=== PATIENT | male | born 1975 | race Caucasian/White ===

== ENCOUNTER 2018-09-18 10:25 | Emergency (ER) | payer OTHER ==
[2018-09-18 11:04] VITALS: TEMP 98.5; BMI 34.2
[2018-09-18] MEDS ORDERED: SODIUM CHLORIDE 0.9% 1000 ML INFUS.BAG IV ONE (11:17)
[2018-09-18] MEDS ORDERED: ONDANSETRON 4 MG/2 ML VIAL IVPUSH ONE (11:19)
[2018-09-18 11:42] LABS: BASO % 0.8 % (0-2.0); EOS % 2.9 % (0-4.5); HEMATOCRIT 45.4 % (35.4-49); HEMOGLOBIN 15.3 GM/dL (11.7-16.9); LYMPH % 24.9 % (8-40); MCH 29.8 pg (25.7-33.7); MCHC 33.6 g/dl (32.0-35.9); MEAN CELL VOLUME 88.6 fl (80-96); MEAN PLT VOLUME 9.5 fl (7.5-11.1); MONO % 5.4 % (3.8-10.2); PLATELET COUNT 212 K/MM3 (134-434); RBC 5.13 M/mm3 (4.00-5.60); RDW 13.3 % (11.9-15.9); WHITE BLOOD COUNT 7.8 K/mm3 (4.0-10.0)
[2018-09-18] MEDS ORDERED: morphine CARPU-JECT 4 MG/1 ML DISP.SYRIN IVPUSH ONE (11:52)
[2018-09-18] MEDS ORDERED: morphine SULFATE 4 MG/ML VIAL ONE (11:55)
--- NOTE | 2018-09-18 11:55 | PDOC ---
History of Present Illness <Tigist Cho - Last Filed: 09/18/18 13:37> - General History Source: Patient Exam Limitations: No Limitations - History of Present Illness Initial Comments: 09/18/18 11:53 43 yo male with h/o asthma here with c/o right sided abd/ flank pain. started 2 days ago. did have nausea. pain worse with coughing, movement and deep breathing. no f/c no hematuria or dysuria. <Fatou Chang - Last Filed: 09/18/18 14:20> - General Chief Complaint: Pain Stated Complaint: SEVERE SIDE PAIN Past History <Tigist Cho - Last Filed: 09/18/18 13:37> - Past Medical History Asthma: Yes Cancer: No CVA: No COPD: No CHF: No DVT: No Diabetes: No GI Disorders: Yes (GERD, hx diverticulitis) Disorders: Yes (urine problems ? sees urologist) HTN: No Hypercholesterolemia: No Liver Disease: No Seizures: No Thyroid Disease: No - Surgical History Abdominal Surgery: Yes (UMBILICAL HERNIA: 01/16/13) - Immunization History Immunization Up to Date: Yes - Suicide/Smoking/Psychosocial Hx Smoking Status: Yes Smoking History: Current every day smoker Number of Cigarettes Smoked Daily: 20 Information on smoking cessation initiated: No Hx Alcohol Use: Yes (occassional.) Drug/Substance Use Hx: Yes (marijuana) Substance Use Type: Alcohol, Marijuana Hx Substance Use Treatment: No <KiyarosettaFatou - Last Filed: 09/18/18 14:20> - Past Medical History Allergies/Adverse Reactions: Allergies Allergy/AdvReac Type Severity Reaction Status Date / Time No Known Allergies Allergy Verified 10/11/14 01:18 Home Medications: Ambulatory Orders Montelukast Na [Singulair] 10 mg PO HS 02/06/13 Salmeterol/Fluticasone [Advair 250Mcg/50Mcg] 1 inh IH BID 02/06/13 Omeprazole [Prilosec (RX)] 20 mg PO DAILY 10/11/14 Tiotropium [place] [Spiriva -] 1 inh PO DAILY 10/11/14 Diclofenac Sodium 75 mg PO DAILY 06/29/18 Diazepam [Valium] 5 mg PO Q8H PRN #10 tablet MDD 3 09/18/18 Gabapentin 600 mg PO HS 09/18/18 Ibuprofen [Motrin -] 600 mg PO TID #90 tablet 09/18/18 Ranitidine HCl 50 mg PO DAILY 09/18/18 *Physical Exam - Vital Signs Last Vital Signs Temp Pulse Resp BP Pulse Ox 98.5 F 94 H 16 127/86 100 09/18/18 10:51 09/18/18 10:51 09/18/18 10:51 09/18/18 10:51 09/18/18 10:51 <Tigist Cho - Last Filed: 09/18/18 13:37> - Vital Signs Last Vital Signs Temp Pulse Resp BP Pulse Ox 98.5 F 94 H 16 127/86 100 09/18/18 10:51 09/18/18 10:51 09/18/18 10:51 09/18/18 10:51 09/18/18 10:51 <KiyarosettaFatou - Last Filed: 09/18/18 14:20> ED Treatment Course - LABORATORY CBC & Chemistry Diagram: 09/18/18 11:37 09/18/18 11:37 - ADDITIONAL ORDERS Additional order review: Laboratory Results 09/18/18 11:37 Sodium 143 Potassium 3.9 Chloride 107 Carbon Dioxide 24 Anion Gap 12 BUN 16 Creatinine 0.8 Creat Clearance w eGFR > 60 Random Glucose 81 Calcium 9.2 Total Bilirubin 0.7 AST 25 ALT 50 Alkaline Phosphatase 63 Total Protein 7.6 Albumin 4.1 Lipase 171 09/18/18 11:37 RBC 5.13 MCV 88.6 MCHC 33.6 RDW 13.3 MPV 9.5 Neutrophils % 66.0 Lymphocytes % 24.9 D Monocytes % 5.4 Eosinophils % 2.9 Basophils % 0.8 - RADIOLOGY Radiograph Interpretation: 09/18/18 13:00 Chest X-ray as reviewed by Dr. Hood reports no acute pathology. 09/18/18 13:[address] as reviewed by Dr. Patton reports mild atelectactic changes in lingular segment of the left upper lobe. Fatty liver. No evidence of hydroureteronephrosis, renal or ureteral stone bilaterally. No urinary bladder stones identified. Diverticulosis coli mainly in the sigmoid colon without evidence of acute diverticulitis. - Medications Given in the ED: ED Medications Discontinued Medications Generic Name Dose Route Start Last Admin Trade Name Freq PRN Reason Stop Dose Admin Morphine Sulfate 4 mg 09/18/18 11:52 09/18/18 11:56 Morphine Injection - IVPUSH 09/18/18 11:53 4 mg ONCE ONE Administration Ondansetron HCl 4 mg 09/18/18 11:19 09/18/18 11:36 Zofran Injection IVPUSH 09/18/18 11:20 4 mg ONCE ONE Administration Sodium Chloride 1,000 ml 09/18/18 11:17 09/18/18 11:36 Normal Saline - IV 09/18/18 11:18 1,000 ml ONCE ONE Administration <Tigist Cho - Last Filed: 09/18/18 13:37> - LABORATORY CBC & Chemistry Diagram: 09/18/18 11:37 09/18/18 11:37 - ADDITIONAL ORDERS Additional order review: 09/18/18 11:37 RBC 5.13 MCV 88.6 MCHC 33.6 RDW 13.3 MPV 9.5 Neutrophils % 66.0 Lymphocytes % 24.9 D Monocytes % 5.4 Eosinophils % 2.9 Basophils % 0.8 - Medications Given in the ED: ED Medications Discontinued Medications Generic Name Dose Route Start Last Admin Trade Name Freq PRN Reason Stop Dose Admin Ondansetron HCl 4 mg 09/18/18 11:19 09/18/18 11:36 Zofran Injection IVPUSH 09/18/18 11:20 4 mg ONCE ONE Administration Sodium Chloride 1,000 ml 09/18/18 11:17 09/18/18 11:36 Normal Saline - IV 09/18/18 11:18 1,000 ml ONCE ONE Administration <Fatou Chang - Last Filed: 09/18/18 14:20> Medical Decision Making - Medical Decision Making 09/18/18 14:10 differential diagnosis msk strain pain, renal colic, cholelithiasis, cholecystitis, biliary obstruction, rib injury pna. no risk factors for pe ( no ho pe or dvt, no recent travel, no immoblilization.) reproducible pain on exam. focused ED ultrasound rUQ indication: ruq pain r/o toya gallbladder scanned in two planes. wall no edema. no thickening, no pericholecystic fluid, no sonographic fernandez's , cbd not visualized difficult due to habitus. no stones. impressions: normal gallbladder bilateral renal ultrasound indication: flank pain, right bilateral kidneys scanned in two planes. no noted hydronephrosis bladder nondistended. impressions: normal renal ultrasound plan ct a/p r/o discrete nonobstructing stone as cause for pain. due to reproducible nature. suspect msk ct a/p negative. will treat with motrin and valiu. dc dariela. <Fatou Chnag - Last Filed: 09/18/18 14:20> *DC/Admit/Observation/Transfer - Attestations Scribe Attestion: 09/18/18 13:00 Documentation prepared by Tigist Cho, acting as phlebotomist medical lab assistant for Fatou Chang MD. <Tigist Cho - Last Filed: 09/18/18 13:37> - Discharge Dispostion Decision to Admit order: No <Fatou Chang - Last Filed: 09/18/18 14:20> Diagnosis at time of Disposition: Back strain - Discharge Dispostion Disposition: HOME Condition at time of disposition: Improved - Prescriptions Prescriptions: Diazepam [Valium] 5 mg PO Q8H PRN #10 tablet MDD 3 PRN Reason: Pain Ibuprofen [Motrin -] 600 mg PO TID #90 tablet - Referrals Referrals: Janice Isidro MD [Primary Care Provider] - - Patient Instructions Printed Discharge Instructions: Back Pain (Alternative Therapy) Additional Instructions: you can take ibuprofen 600 mg every 8 hrs as needed for pain. you can use valium 5 mg every 8 hrs as needed for muscle spasm. do not mix with alcohol and do not drive after taking medication. your CT abdomen was negative for any acute pathology to explain your pain. your chest xray is negative for any pneumonia. you likley strained your back during coughing or lifting. follow up with your primary doctor. call to schedule. return for worsening symptoms, fever. weakness or any concerns. - Post Discharge Activity
[2018-09-18 12:17] LABS: ALBUMIN 4.1 g/dl (3.4-5.0); ALK PHOS 63 U/L (45-117); ANION GAP 12 MMOL/L (8-16); BILIRUBIN,TOTAL 0.7 mg/dL (0.2-1); BLOOD UREA NITROGEN 16 mg/dL (7-18); CALCIUM 9.2 mg/dL (8.5-10.1); CHLORIDE 107 mmol/L (98-107); CO2 24 mmol/L (21-32); CREATININE 0.8 mg/dL (0.55-1.3); GLUCOSE,RANDOM 81 mg/dL (74-106); LIPASE 171 U/L (73-393); POTASSIUM 3.9 mmol/L (3.5-5.1); SGOT/AST 25 U/L (15-37); SGPT/ALT 50 U/L (13-61); SODIUM 143 mmol/L (136-145); TOT PROT 7.6 g/dl (6.4-8.2)
[2018-09-18] MEDS ORDERED: diazePAM 5 MG TABLET PO ONE (13:47)
[2018-09-18] MEDS ORDERED: KETOROLAC TROMETHAMINE 30 MG/1 ML VIAL IVPUSH ONE (13:47)
[2018-09-18] MEDS ORDERED: diazePAM 5 MG TABLET ONE (13:49)
[2018-09-18] MEDS ORDERED: KETOROLAC TROMETHAMINE 30 MG/1 ML VIAL ONE (13:50)
[2018-09-18 14:49] LABS: URINE APPEARANCE CLEAR; URINE BILIRUBIN NEGATIVE (<2.0 mg/dL); URINE COLOR LTYELLOW; URINE GLUCOSE (UA) NEGATIVE (NEGATIVE); URINE KETONE NEGATIVE (NEGATIVE); URINE LEUK ESTERASE NEGATIVE (NEGATIVE); URINE NITRITE NEGATIVE (NEGATIVE); URINE PROTEIN NEGATIVE (NEGATIVE); URINE UROBILINOGEN NEGATIVE mg/dL (0.2-1.0)
[2018-09-18 14:54] LABS: EPI CELLS RARE /HPF (FEW)
[2018-09-18 15:26] VITALS: BP 118/65; PULSE 65
== END 2018-09-18 15:36 | disposition home or self-care (01) ==
LOC: JER 10:25
PROC: 3E033GC Introduction of Other Therapeutic Substance into Peripheral Vein, Percutaneous Approach (ICD-10-PCS; principal; 2018-09-18)
PROC: 3E033NZ Introduction of Analgesics, Hypnotics, Sedatives into Peripheral Vein, Percutaneous Approach (ICD-10-PCS; 2018-09-18)
PROC: 3E0333Z Introduction of Anti-inflammatory into Peripheral Vein, Percutaneous Approach (ICD-10-PCS; 2018-09-18)
DX: S39.012A Strain of muscle, fascia and tendon of lower back, initial encounter (principal); J45.909 Unspecified asthma, uncomplicated; K21.9 Gastro-esophageal reflux disease without esophagitis; F17.210 Nicotine dependence, cigarettes, uncomplicated; X58.XXXA Exposure to other specified factors, initial encounter; Y93.89 Activity, other specified; Y92.89 Other specified places as the place of occurrence of the external cause; Y99.8 Other external cause status
CPT/HCPCS: 36415; 71046-TC-FY; 74176; 80053; 81003; 81015; 83690; 85025; 96374; 96375; 99283-25; J7030

== ENCOUNTER 2019-03-13 11:01 | Emergency (ER) | payer OTHER ==
[2019-03-13 11:08] VITALS: BP 143/91; PULSE 98; TEMP 99.1; BMI 37.7
[2019-03-13] MEDS ORDERED: DEXAMETHASONE SOD PHOSPHATE 10 MG/1 ML VIAL ONE (11:32)
[2019-03-13] MEDS ORDERED: IBUPROFEN 400 MG TABLET (FP) PO ONE ×2 (12:20→12:48)
[2019-03-13] MEDS: ALBUTEROL SO4 2.5/IPRATROPIUM 0.5 INH SOL 3 ML VIAL.NEB. NEB SCH ×2 (12:30→15:40)
--- NOTE | 2019-03-13 12:39 | PDOC ---
Documentation entered by Lucy Chacon SCRIBE, acting as scribe for Maxwell Horowitz MD. Maxwell Horowitz MD: This documentation has been prepared by the Oswaldo oates Amanda, SCRIBE, under my direction and personally reviewed by me in its entirety. I confirm that the documentation accurately reflects all work, treatment, procedures, and medical decision making performed by me. History of Present Illness - General Chief Complaint: Asthma Stated Complaint: Asthma Time Seen by Provider: 03/13/19 11:47 History Source: Patient Exam Limitations: No Limitations - History of Present Illness Initial Comments: 03/13/19 12:15 The patient is a 45 year old female, with a significant past medical history of asthma (s.p intubation 2002) and GERD who presents to the emergency department via ems with complaint of shortness of breath since 2AM yesterday with associated dry cough, chills, sweats, and one hour of left upper quadrant pain today. He states he used his ventolin x15 since yesterday without any relief of his symptoms. He reports use of his nebulizer at 7AM without relief. He states he also used his advair this morning without relief. He states he has run out of his Spiriva. Of note, patient recently moved in with his parents and notes mold and dust in the house, which could also be triggers. As per EMS, the patient received 1 nebulizer treatment and 10mg of decadron in route to the ED. He states his has been sick for about 5 days with what he believes to be the flu. Secondarily, he states he was scheduled for an endoscopy today, however, his symptoms prompted his ED visit. The patient denies chest pain, headache and dizziness. The patient denies facial pain or sinus congestion. The patient denies fever, chills, nausea, vomit , diarrhea and constipation. The patient denies dysuria, frequency, urgency and hematuria. Allergies: NKDA Past surgical history: hernia repair (2004) PCP - [facility] [employer]: Dr. Vasquez Past History - Past Medical History Allergies/Adverse Reactions: Allergies Allergy/AdvReac Type Severity Reaction Status Date / Time No Known Allergies Allergy Verified 10/11/14 01:18 Home Medications: Ambulatory Orders Montelukast Na [Singulair -] 10 mg PO HS 02/06/13 Salmeterol/Fluticasone [Advair 250Mcg/50Mcg] 1 inh IH BID 02/06/13 Omeprazole [Prilosec (RX)] 20 mg PO DAILY 10/11/14 Tiotropium [place] [Spiriva] 1 inh PO DAILY 10/11/14 Diclofenac Sodium 75 mg PO DAILY 06/29/18 Diazepam [Valium] 5 mg PO Q8H PRN #10 tablet MDD 3 09/18/18 Gabapentin 600 mg PO HS 09/18/18 Ibuprofen [Motrin -] 600 mg PO TID #90 tablet 09/18/18 Ranitidine HCl 50 mg PO DAILY 09/18/18 Methylprednisolone [Medrol Dose Brendon] 4 mg PO ASDIR #21 tablet 03/13/19 Asthma: Yes Cancer: No CVA: No COPD: No CHF: No DVT: No Diabetes: No GI Disorders: Yes (GERD, hx diverticulitis) Disorders: Yes (urine problems ? sees urologist) HTN: No Hypercholesterolemia: No Liver Disease: No Seizures: No Thyroid Disease: No - Surgical History Abdominal Surgery: Yes (UMBILICAL HERNIA: 01/16/13) - Immunization History Immunization Up to Date: Yes - Suicide/Smoking/Psychosocial Hx Smoking Status: Yes Smoking History: Current every day smoker Have you smoked in the past 12 months: Yes Number of Cigarettes Smoked Daily: 20 Information on smoking cessation initiated: No Hx Alcohol Use: No Drug/Substance Use Hx: No Substance Use Type: Alcohol, Marijuana Hx Substance Use Treatment: No Review of Systems - Review of Systems Constitutional: Yes: Chills, Fever, Night Sweats Respiratory: Yes: Cough, Shortness of Breath, Wheezing Cardiac (ROS): No: Syncope ABD/GI: No: Vomiting Musculoskeletal: Yes: Muscle Pain All Other Systems: Reviewed and Negative *Physical Exam - Vital Signs Last Vital Signs Temp Pulse Resp BP Pulse Ox 99.1 F 98 H 20 143/91 98 03/13/19 11:05 03/13/19 11:05 03/13/19 11:05 03/13/19 11:05 03/13/19 11:05 - Physical Exam Comments: 03/13/19 12:15 GENERAL: The patient is awake, alert, and fully oriented, in no acute distress. HEAD: Normal with no signs of trauma. EYES: Pupils equal, round and reactive to light, extraocular movements intact, sclera anicteric, conjunctiva clear with no pallor. ENT: Ears normal, nares patent, oropharynx clear without exudates. Moist mucous membranes. NECK: Normal range of motion, supple without lymphadenopathy, JVD, or masses. LUNGS: (+) bibasilar distant breath sounds with expiratory wheezing, otherwise good air movement. Breath sounds equal, clear to auscultation bilaterally. No wheeze/crackles. CHEST: (+) reproducible tenderness to left lower intercostal lower ribs. HEART: Regular rate and rhythm, normal S1 and S2 without murmur or rub. ABDOMEN: Soft/nontender/nondistended. BS wnl. No guarding or rebound. No palpable masses. No hepatosplenomegaly. EXTREMITIES: Normal range of motion, no edema. No clubbing or cyanosis. No cords, erythema, or tenderness. NEUROLOGICAL: Cranial nerves II through XII grossly intact. Normal speech, normal gait. PSYCH: Normal mood, normal affect. SKIN: Warm, Dry, normal turgor, no rashes or lesions noted. Heart Score/ECG Review #1 General ECG Interpretation: Sinus Rhythm, Normal Rate (85), Normal Intervals ( qtc 414), No acute ischemic changes ED Treatment Course - RADIOLOGY Radiology Studies Ordered: Category Date Time Status CHEST PA & LAT [RAD] Stat Radiology 03/13/19 12:09 Ordered Medical Decision Making - Medical Decision Making 03/13/19 12:34 44-year-old male with history of moderate persistent asthma intubated once in 2002 maintained on Advair and Spiriva daily and usual state of good health until yesterday, when began developing generalized viral symptoms of fever/ chills/night sweats/myalgia/cough, sick contact in with same over the last 2 days so presumed similar illness. Presents now secondary to asthma exacerbation in the setting, requiring almost hourly Ventolin pump use at home. 99.1, O2 sat 98% on room air, slightly tachypneic on arrival Received DuoNeb nebs and Decadron with EMS Distant breath sounds at both bases with expiratory wheezing, otherwise good air entry Reproducible intercostal muscle discomfort to palpation in the left lower ribs, no rash or bruising 44-year-old male with asthma exacerbation in the setting of viral illness, possible influenza. Rule out pneumonia. Continue nebulizers Already received steroids Chest x-ray, EKG Ibuprofen for rib muscle strain Reassess 03/13/19 15:23 feels much better after nebs, o2 sat 98% room air, ambulating comfortably, still with some rib discomfort treated with tramadol. EKG normal, cxr normal will d/c on medrol dose pack, has refills of his advair/spiriva, understands return criteria smoking cessation counseling performed *DC/Admit/Observation/Transfer Diagnosis at time of Disposition: Acute asthma exacerbation Qualifiers: Asthma severity: mild Asthma persistence: intermittent Qualified Code(s): J45.21 - Mild intermittent asthma with (acute) exacerbation - Discharge Dispostion Disposition: HOME Condition at time of disposition: Improved - Prescriptions Prescriptions: Methylprednisolone [Medrol Dose Brendon] 4 mg PO ASDIR #21 tablet - Referrals Referrals: Janice Isidro MD [Primary Care Provider] - - Patient Instructions Printed Discharge Instructions: DI for Asthma -- Adult Additional Instructions: Activity as tolerated. Stay hydrated. A flu test, a chest x-ray, and an EKG showed no acute abnormalities. Tylenol 1000 mg every 8 hours and/or ibuprofen 600 mg every 8 hours as needed for pain. Continue Advair and Spiriva as previously prescribed, continue Ventolin as previously prescribed as needed, take Medrol Dosepak as prescribed as steroid taper. Continue your medications as previously prescribed by your physician. You should follow up with your primary doctor as soon as possible regarding today's emergency department visit. Return to the emergency department for any new or concerning symptoms, particularly persistent or worsening shortness of breath, persistent or worsening pain, high fevers or chills, chest pain. - Post Discharge Activity
[2019-03-13] MEDS ORDERED: ALBUTEROL SO4 2.5/IPRATROPIUM 0.5 INH SOL 3 ML VIAL.NEB. NEB ONE ×2 (12:48→14:45)
--- NOTE | 2019-03-13 14:59 | EKG ---
Test Reason : Blood Pressure : / mmHG Vent. Rate : 085 BPM Atrial Rate : 085 BPM P-R Int : 168 ms QRS Dur : 088 ms QT Int : 348 ms P-R-T Axes : 048 057 054 degrees QTc Int : 414 ms NORMAL SINUS RHYTHM NORMAL ECG WHEN COMPARED WITH ECG OF 21-DEC-2000 22:54, QT HAS SHORTENED Confirmed by MD Alfa, Collin ([id number]) on 03/13/2019 2:59:39 PM Referred By: Confirmed By:Collin Grimm MD
[2019-03-13] MEDS ORDERED: traMADol HCL 50 MG TABLET PO ONE (15:29)
[2019-03-13] MEDS ORDERED: traMADol HCL 50 MG TABLET ONE (15:32)
== END 2019-03-13 15:58 | disposition home or self-care (01) ==
LOC: JER 11:01
PROC: 3E0F7GC Introduction of Other Therapeutic Substance into Respiratory Tract, Via Natural or Artificial Opening (ICD-10-PCS; principal; 2019-03-13)
DX: J45.21 Mild intermittent asthma with (acute) exacerbation (principal); S29.011A Strain of muscle and tendon of front wall of thorax, initial encounter; X58.XXXA Exposure to other specified factors, initial encounter; Y93.89 Activity, other specified; Y92.89 Other specified places as the place of occurrence of the external cause; Y99.8 Other external cause status
CPT/HCPCS: 71046-TC-FY; 87804; 93005; 93010; 94640; 99282-25

== ENCOUNTER 2021-05-14 11:50 | Emergency (ER) | payer OTHER ==
[2021-05-14 12:27] VITALS: BP 117/80; PULSE 85; TEMP 98.1; BMI 40.8
[2021-05-14] MEDS ORDERED: LIDOCAINE 5% TOPICAL PATCH TP ONE (12:55)
[2021-05-14] MEDS ORDERED: KETOROLAC TROMETHAMINE 30 MG/1 ML VIAL IVPUSH ONE (12:55)
[2021-05-14] MEDS ORDERED: KETOROLAC TROMETHAMINE 30 MG/1 ML VIAL IM ONE ×2 (12:58→14:39)
[2021-05-14] MEDS ORDERED: KETOROLAC TROMETHAMINE 30 MG/1 ML VIAL ONE ×2 (13:00→14:46)
[2021-05-14] MEDS ORDERED: LIDOCAINE 5% TOPICAL PATCH ONE (13:21)
[2021-05-14] MEDS ORDERED: CYCLOBENZAPRINE HCL 5 MG TABLET PO ONE (14:39)
[2021-05-14] MEDS ORDERED: CYCLOBENZAPRINE HCL 10 MG TABLET (FP) ONE (14:46)
[2021-05-14] MEDS ORDERED: LIDOCAINE PATCH REMOVAL MC SCH (22:00)
[2021-05-15] MEDS ORDERED: CYCLOBENZAPRINE HCL 5 MG TABLET PO ONE (14:39)
== END 2021-05-14 16:03 ==
LOC: FER 11:50
PROC: 3E0233Z Introduction of Anti-inflammatory into Muscle, Percutaneous Approach (ICD-10-PCS; principal; 2021-05-14)
PROC: 3E0333Z Introduction of Anti-inflammatory into Peripheral Vein, Percutaneous Approach (ICD-10-PCS; 2021-05-14)
DX: M54.41 Lumbago with sciatica, right side (principal)
CPT/HCPCS: 72131-TC; 99285-25

== ENCOUNTER 2023-05-25 12:52 | Emergency (ER) | payer OTHER ==
[2023-05-25 13:02] VITALS: BP 139/89; PULSE 80; RESP 20; TEMP 98.3; BMI 29.0
[2023-05-25] MEDS ORDERED: SODIUM CHLORIDE 0.9% 500 ML INFUS.BAG IV ONE (13:24)
[2023-05-25] MEDS ORDERED: KETOROLAC TROMETHAMINE 15 MG/ML VIAL IVPUSH ONE (13:24)
[2023-05-25] MEDS ORDERED: KETOROLAC TROMETHAMINE 15 MG/ML VIAL ONE (13:48)
[2023-05-25 15:15] LABS: BASO % 0.7 % (0-2.0); EOS % 2.5 % (0-4.5); HEMATOCRIT 43.7 % (35.4-49); LYMPH % 22.5 % (8-40); MCH 29.9 pg (25.7-33.7); MCHC 34.4 g/dl (32.0-35.9); MEAN CELL VOLUME 86.9 fl (80-96); MEAN PLT VOLUME 9.9 fl (7.5-11.1); NEUT % 67.3 % (42.8-82.8); PLATELET COUNT 179 10^3/uL (134-434); RBC 5.03 M/mm3 (4.00-5.60); WHITE BLOOD COUNT 7.2 K/mm3 (4.0-10.0)
[2023-05-25 15:18] LABS: EPI CELLS 1 /uL (0-25.1); HYALINE CASTS 0 /uL (0-3.1); PH,URINE 5.5 (5.0-8.0); URINE APPEARANCE CLEAR; URINE BACTERIA 1 /uL (0-1359); URINE BILIRUBIN NEGATIVE (NEGATIVE); URINE COLOR YELLOW; URINE GLUCOSE (UA) NEGATIVE (NEGATIVE); URINE KETONE NEGATIVE (NEGATIVE); URINE LEUK ESTERASE NEGATIVE (NEGATIVE); URINE NITRITE NEGATIVE (NEGATIVE); URINE PROTEIN NEGATIVE (NEGATIVE); URINE RBC 5 /uL (0-23.9); URINE WBC 1 /uL (0-25.8)
[2023-05-25] MEDS ORDERED: ACETAMINOPHEN 500 MG TABLET (FP) PO ONE (15:19)
[2023-05-25 15:31] LABS: CALCIUM 9.3 mg/dL (8.5-10.1)
[2023-05-25 15:32] LABS: ALBUMIN 3.9 g/dl (3.4-5.0); BLOOD UREA NITROGEN 21.7 mg/dL (7-18)
[2023-05-25 15:35] LABS: CREATININE 0.9 mg/dL (0.55-1.3)
[2023-05-25 15:37] LABS: BILIRUBIN,TOTAL 0.5 mg/dL (0.2-1)
[2023-05-25] MEDS ORDERED: ACETAMINOPHEN 325 MG TABLET (FP) ONE (15:38)
== END 2023-05-25 17:16 | disposition home or self-care (01) ==
LOC: JER 12:52
PROC: 3E0333Z Introduction of Anti-inflammatory into Peripheral Vein, Percutaneous Approach (ICD-10-PCS; principal; 2023-05-25)
DX: M79.652 Pain in left thigh (principal); R10.9 Unspecified abdominal pain
CPT/HCPCS: 36415; 74176-TC; 76870-TC; 80053; 81003; 85025; 87086; 99285-25

== ENCOUNTER 2023-08-26 04:18 | Day surgery (SDC) | payer OTHER ==
[2023-08-24 14:43] VITALS: BMI 36.3
[~2023-08-26 04:18] MED LIST: BUPIVACAINE HCL/PF 0.75% 10 ML VIAL NR ONE; LIDOCAINE HCL 1% PRESERVATIVE FREE - 30ML VIAL IJ ONE
[2023-08-26] MEDS ORDERED: BUPIVACAINE HCL/PF 0.75% 10 ML VIAL ONE (07:26)
[2023-08-26] MEDS ORDERED: LIDOCAINE HCL/PF 1% SDV 5ML VIAL ONE (07:26)
[2023-08-26] MEDS ORDERED: LIDOCAINE HCL 1% PRESERVATIVE FREE - 30ML VIAL IJ ONE (09:23)
[2023-08-26] MEDS ORDERED: BUPIVACAINE HCL/PF 0.75% 10 ML VIAL NR ONE (09:24)
[2023-08-26] MEDS ORDERED: ACETAMINOPHEN 500 MG TABLET (FP) ONE (09:45)
[2023-08-26 09:57] VITALS: BP 125/88; PULSE 67; RESP 18; TEMP 98.4
[2023-08-26] MEDS ORDERED: ACETAMINOPHEN 500 MG TABLET (FP) PO PRN (10:10)
== END 2023-08-26 10:00 | disposition home or self-care (01) ==
LOC: JASU-SURG 04:18
PROVIDERS: ATTEND Pain Medicine Pain Medicine
PROC: 3E0T3BZ Introduction of Anesthetic Agent into Peripheral Nerves and Plexi, Percutaneous Approach (ICD-10-PCS; principal; 2023-08-26 08:45)
DX: M47.816 Spondylosis without myelopathy or radiculopathy, lumbar region (principal)
CPT/HCPCS: 76000-TC-FY

== ENCOUNTER 2023-09-23 04:52 | Day surgery (SDC) | payer OTHER ==
[2023-09-22 09:36] VITALS: BMI 36.3
[2023-09-23] MEDS ORDERED: BUPIVACAINE HCL/PF 0.75% 10 ML VIAL ONE (07:31)
[2023-09-23 09:21] VITALS: RESP 20
[2023-09-23] MEDS ORDERED: ACETAMINOPHEN 500 MG TABLET (FP) PO PRN (09:42)
[2023-09-23] MEDS ORDERED: LIDOCAINE HCL 1% PRESERVATIVE FREE - 30ML VIAL IJ ONE (10:24)
[2023-09-23] MEDS ORDERED: BUPIVACAINE 0.75% IN DEXTROSE/PF 2ML AMPULE NR ONE (10:27)
[2023-09-23 11:26] VITALS: BP 120/80; PULSE 68; TEMP 98
== END 2023-09-23 11:00 | disposition home or self-care (01) ==
LOC: JASU-SURG 04:52
PROVIDERS: ATTEND Pain Medicine Pain Medicine
PROC: 3E0T33Z Introduction of Anti-inflammatory into Peripheral Nerves and Plexi, Percutaneous Approach (ICD-10-PCS; 2023-09-23)
PROC: BR16YZZ Fluoroscopy of Lumbar Facet Joint(s) using Other Contrast (ICD-10-PCS; 2023-09-23)
PROC: 3E0T3BZ Introduction of Anesthetic Agent into Peripheral Nerves and Plexi, Percutaneous Approach (ICD-10-PCS; principal; 2023-09-23 10:15)
DX: M47.816 Spondylosis without myelopathy or radiculopathy, lumbar region (principal)
CPT/HCPCS: 76000-TC-FY

== ENCOUNTER 2023-11-04 04:09 | Day surgery (SDC) | payer OTHER ==
[2023-11-02 13:13] VITALS: BMI 36.3
[~2023-11-04 04:09] MED LIST changes: -BUPIVACAINE HCL/PF 0.75% 10 ML VIAL NR ONE; +BUPIVACAINE HCL/PF 0.75% 10 ML VIAL PNB ONE; +DEXAMETHASONE SOD PHOSPHATE 10 MG/1 ML VIAL IM ONE; +LIDOCAINE HCL 2% (50ML VIAL) INF ONE
[2023-11-04] MEDS ORDERED: BUPIVACAINE HCL/PF 0.75% 10 ML VIAL ONE (07:18)
[2023-11-04] MEDS ORDERED: DEXAMETHASONE SOD PHOSPHATE 10 MG/1 ML VIAL ONE (07:18)
[2023-11-04] MEDS ORDERED: LIDOCAINE HCL/PF 2% SDV 5ML VIAL ONE (07:18)
[2023-11-04] MEDS ORDERED: LIDOCAINE HCL/PF 1% SDV 5ML VIAL ONE (07:18)
[2023-11-04 09:58] VITALS: RESP 18
[2023-11-04] MEDS ORDERED: DEXAMETHASONE SOD PHOSPHATE 10 MG/1 ML VIAL IM ONE (12:21)
[2023-11-04] MEDS ORDERED: BUPIVACAINE HCL/PF 0.75% 10 ML VIAL PNB ONE ×2 (12:21)
[2023-11-04] MEDS ORDERED: LIDOCAINE HCL 2% (50ML VIAL) INF ONE ×2 (12:21)
[2023-11-04] MEDS ORDERED: LIDOCAINE HCL 1% PRESERVATIVE FREE - 30ML VIAL IJ ONE ×2 (12:21)
[2023-11-04] MEDS ORDERED: ACETAMINOPHEN 500 MG TABLET (FP) ONE (12:50)
[2023-11-04] MEDS ORDERED: ACETAMINOPHEN 500 MG TABLET (FP) PO PRN (14:09)
[2023-11-04 15:27] VITALS: BP 121/60; PULSE 65; TEMP 97.8
== END 2023-11-04 13:05 | disposition home or self-care (01) ==
LOC: JASU-SURG 04:09
PROVIDERS: ATTEND Pain Medicine Pain Medicine
PROC: 015B3ZZ Destruction of Lumbar Nerve, Percutaneous Approach (ICD-10-PCS; principal; 2023-11-04 11:15)
DX: M47.816 Spondylosis without myelopathy or radiculopathy, lumbar region (principal)
CPT/HCPCS: 76000-TC-FY; J1100

== ENCOUNTER 2023-12-30 03:52 | Day surgery (SDC) | payer OTHER ==
[2023-12-29 10:21] VITALS: BMI 36.3
[2023-12-30] MEDS ORDERED: LIDOCAINE HCL/PF 2% SDV 5ML VIAL ONE (07:24)
[2023-12-30] MEDS ORDERED: BUPIVACAINE HCL/PF 0.75% 10 ML VIAL ONE (07:25)
[2023-12-30] MEDS ORDERED: LIDOCAINE HCL/PF 1% SDV 5ML VIAL ONE (07:25)
[2023-12-30] MEDS ORDERED: ACETAMINOPHEN 500 MG TABLET (FP) PO PRN ×2 (08:29→13:44)
[2023-12-30 14:14] VITALS: TEMP 97.7
[2023-12-30] MEDS: LIDOCAINE HCL 1% PRESERVATIVE FREE - 30ML VIAL IJ ONE ×2 (14:45)
[2023-12-30] MEDS: LIDOCAINE HCL/PF 2% SDV 5ML VIAL INF ONE ×2 (14:55)
[2023-12-30] MEDS: DEXAMETHASONE SOD PHOSPHATE 10 MG/1 ML VIAL IM ONE ×2 (15:02)
[2023-12-30] MEDS: BUPIVACAINE HCL/PF 0.75% 10 ML VIAL NR ONE ×2 (15:02)
[2023-12-30 15:19] VITALS: BP 122/79; PULSE 80; RESP 19
[2024-01-03] MEDS ORDERED: ACETAMINOPHEN 500 MG TABLET (FP) PO PRN (08:29)
== END 2023-12-30 15:23 | disposition home or self-care (01) ==
LOC: JASU-SURG 03:52
PROVIDERS: ATTEND Pain Medicine Pain Medicine
PROC: 015B3ZZ Destruction of Lumbar Nerve, Percutaneous Approach (ICD-10-PCS; principal; 2023-12-30 15:00)
DX: M47.816 Spondylosis without myelopathy or radiculopathy, lumbar region (principal)
CPT/HCPCS: 76000-TC-FY; J1100

== ENCOUNTER → 2024-02-07 | Day surgery (SDC) | payer OTHER ==
[2024-02-03 10:24] VITALS: BMI 36.3
[~2024-02-07] MED LIST changes: +ACETAMINOPHEN 500 MG TABLET (FP) PO PRN; -BUPIVACAINE HCL/PF 0.75% 10 ML VIAL PNB ONE; -DEXAMETHASONE SOD PHOSPHATE 10 MG/1 ML VIAL IM ONE; +DEXAMETHASONE SOD PHOSPHATE 10 MG/1 ML VIAL ONE; -LIDOCAINE HCL 1% PRESERVATIVE FREE - 30ML VIAL IJ ONE; -LIDOCAINE HCL 2% (50ML VIAL) INF ONE; +LIDOCAINE HCL/PF 1% SDV 5ML VIAL ONE
== END | disposition home or self-care (01) ==
LOC: JASU-SURG 05:16
PROVIDERS: ATTEND Pain Medicine Pain Medicine
DX: Z53.8 Procedure and treatment not carried out for other reasons (principal)
CPT/HCPCS: J1100